=== PATIENT | female | born 1970 | race Caucasian/White ===

== ENCOUNTER 2018-04-03 00:46 | Emergency (ER) | payer BC ==
[~2018-04-03] VITALS: Ht 162.6 cm; Wt 90.7 kg
[~2018-04-03 00:46] MED LIST: BENADRYL; CALGLU500; CHOLESTEROL MED; CLIN150 PO; CLIN300 PO; CYCL10 PO; DECONGESTANT; DIAZ5 PO; DIPH50 PO; ETOD400 PO; FLUT.05NI; FOLI1 PO; HYDACE5 PO; IBUP800 PO; LORA10; LORA10ER PO; METPRE4DP PO; MULVIT; MULVIT PO; Norco 5-325 Ta1 EACH PO; ONDA4 PO; OXYACE5T PO; PROC10 PO; PRODEXEL PO; PROM25 PO; Pepcid20 MG PO; RXCLIN PO; RXCYCL10 PO; RXHYDACE PO; TRAM50 PO; Tamiflu75 MG PO; ZAFI20; Zithromax250 MG PO; [UNRECOGNIZED DRUG - REMARK]; [UNRECOGNIZED DRUG - REMARK]; [UNRECOGNIZED DRUG - REMARK]
[2018-04-03] MEDS ORDERED: Vibramycin100 MG PO (03:21)
== END 2018-04-03 03:24 | disposition left against medical advice (07) ==
LOC: ER 00:46
DX: J01.90 Acute sinusitis, unspecified (principal); E11.9 Type 2 diabetes mellitus without complications; F17.210 Nicotine dependence, cigarettes, uncomplicated; Z91.041 Radiographic dye allergy status; Z88.0 Allergy status to penicillin; Z88.2 Allergy status to sulfonamides; Z88.1 Allergy status to other antibiotic agents; Z91.013 Allergy to seafood; Z88.5 Allergy status to narcotic agent; Z88.6 Allergy status to analgesic agent
CPT/HCPCS: 99283; J1100

== ENCOUNTER → 2021-04-15 | Outpatient (CLI) | payer BC ==
[~2021-04-15] MED LIST changes: +Vibramycin100 MG PO
== END | disposition home or self-care (01) ==
LOC: LAB SHORT 14:06 → LAB 14:06
DX: N30.01 Acute cystitis with hematuria (principal)
CPT/HCPCS: 87077; 87086; 87186

== ENCOUNTER 2021-11-18 22:27 | Inpatient (IN) | payer OTHER ==
[~2021-11-18] VITALS: Ht 162.6 cm; Wt 90.2 kg
[2021-11-18 22:50] LABS: BASOPHILS ABSOLUTE AUTO 0.09 K/mm3 (0.00-0.23); BASOPHILS PERCENT AUTO 1 % (0-2); EOSINOPHILS ABSOLUTE AUTO 0.26 K/mm3 (0.00-0.68); EOSINOPHILS PERCENT AUTO 2 % (0-6); Hemoglobin 16.8 g/dL (11.5-16.0); IMMATURE GRAN ABSOLUTE AUTO 0.08 K/mm3 (0.00-0.10); IMMATURE GRAN PERCENT AUTO 1 % (0-1); LYMPHOCYTES PERCENT AUTO 12 % (21-46); MONOCYTES ABSOLUTE AUTO 0.75 K/mm3 (0.16-1.47); MONOCYTES PERCENT AUTO 6 % (4-13); Mean Corpuscular HGB 30.5 pg (26.0-34.0); Mean Corpuscular HGB Conc 33.6 g/dL (31.5-36.5); Mean Corpuscular Volume 91 fL (80-100); Mean Platelet Volume 8.9 fL (9.1-12.4); NEUTROPHILS ABSOLUTE AUTO 9.39 K/mm3 (1.96-9.15); NEUTROPHILS PERCENT AUTO 78 % (41-73); Platelet Count 306 K/mm3 (150-400); RDW Coefficient Variation 13.2 % (11.7-14.2); RDW Standard Deviation 43.1 fL (35.1-46.3); Red Blood Cell Count 5.51 M/mm3 (3.80-5.20); White Blood Cell Count 11.97 K/mm3 (4.00-11.30)
[2021-11-18 22:56] LABS: Bicarbonate Venous 28.3 mmol/L (24.0-30.0); PCO2 Venous 47.1 mmHg (38-42); pH Blood Venous 7.43 (7.34-7.37)
[2021-11-18 23:19] LABS: Alanine Aminotransfer (ALT/SGP 46 U/L (12-78); Albumin/Globulin Ratio 0.5 (0.8-1.8); Alk Phos 144 U/L (50-136); Anion Gap 9 mmol/L (6-16); Aspartate Aminotrans (AST/SGOT 27 U/L (12-37); Bilirubin, Total 0.7 mg/dL (0.1-1.0); Blood Urea Nitrogen 10 mg/dL (8-24); Bun/Creatinine Ratio 12.6 (12.0-20.0); CO2, Blood 29 mmol/L (21-32); Calcium, Blood 10.1 mg/dL (8.5-10.1); Chloride, Blood 92 mmol/L (98-108); Creatinine, Blood 0.79 mg/dL (0.40-1.00); Globulin, Blood 6.4 g/dL (2.2-4.0); Glomerular Filtration Rate >60 (60-); Glucose, Blood 382 mg/dL (70-99); Potassium, Blood 4.2 mmol/L (3.5-5.5); Sodium, Blood 130 mmol/L (136-145); Total Protein, Blood 9.4 g/dL (6.4-8.2)
[2021-11-18 23:47] LABS: Influenza A, PCR NEGATIVE (NEGATIVE); Influenza B, PCR NEGATIVE (NEGATIVE); Resp Syncytial Virus, PCR NEGATIVE (NEGATIVE); SARS-Cov-2 (COVID-19) PCR, MMC NEGATIVE (NEGATIVE)
[2021-11-19 03:43] LABS: Hematocrit 46.4 % (33.0-51.0); Hemoglobin 15.2 g/dL (11.5-16.0); Mean Corpuscular HGB Conc 32.8 g/dL (31.5-36.5); Mean Corpuscular Volume 92 fL (80-100); Mean Platelet Volume 9.3 fL (9.1-12.4); Platelet Count 282 K/mm3 (150-400); RDW Coefficient Variation 13.2 % (11.7-14.2); RDW Standard Deviation 42.9 fL (35.1-46.3); Red Blood Cell Count 5.06 M/mm3 (3.80-5.20); White Blood Cell Count 9.96 K/mm3 (4.00-11.30)
[2021-11-19 04:00] LABS: Anion Gap 5 mmol/L (6-16); Blood Urea Nitrogen 12 mg/dL (8-24); Bun/Creatinine Ratio 15.9 (12.0-20.0); CO2, Blood 30 mmol/L (21-32); Calcium, Blood 9.4 mg/dL (8.5-10.1); Chloride, Blood 96 mmol/L (98-108); Creatinine, Blood 0.75 mg/dL (0.40-1.00); Glomerular Filtration Rate >60 (60-); Glucose, Blood 414 mg/dL (70-99); Potassium, Blood 4.7 mmol/L (3.5-5.5); Sodium, Blood 131 mmol/L (136-145)
--- NOTE | 2021-11-19 06:23 | NUR ---
SHIFT SUMMARY PATIENT ADMITTED TO FLOOR AROUND 0330 AND FOUND TO BE AN ANXIOUS LADY WHO IS A&OX4 WITH SOME GEN WEAKNESS. UP WITH ONE ASSIST IN ROOM. VSS. ON 9L HFNC UPON ARRIVAL SATING MID 90'S. TACHYPENIC AND DYSPNEA ON EXERTION. SINUS TACHY IN THE LOW 100'S. IS VERY NEEDY AT TIMES BUT PLESANT. EXAGGERATES ALOT OF HER SYMPTOMS AND STORIES. TOLERATING ADA DIET. BSC. IV FLUIDS INFUSING. NO CONCERNS AT THIS TIME. WILL CONTINUE PLAN OF CARE UNTIL REPORT GIVEN TO RENEE TRAYLOR.
[2021-11-19 06:35] LABS: BASOPHILS PERCENT MAN 0 % (0-2); EOSINOPHILS PERCENT MAN 0 % (0-6); LYMPHOCYTES ABSOLUTE MAN 0.29 K/mm3 (0.84-5.20); LYMPHOCYTES PERCENT MAN 3 % (21-46); METAMYELOCYTE ABSOLUTE MAN 0.09 K/mm3 (0.00-0.00); METAMYELOCYTE PERCENT MAN 1 % (0-0); MONOCYTES ABSOLUTE MAN 0.09 K/mm3 (0.16-1.47); MONOCYTES PERCENT MAN 1 % (4-13); MYELOCYTE ABSOLUTE MAN 0.09 K/mm3 (0.00-0.00); MYELOCYTE PERCENT MAN 1 % (0-0); NEUTROPHILS ABSOLUTE MAN 9.36 K/mm3 (1.96-9.15); SEG NEUTROPHILS PERCENT MAN 94 % (41-73); TOTAL CELLS COUNTED 100
[2021-11-19 07:53] LABS: Glucose, Blood 555 mg/dL (70-99)
--- NOTE | 2021-11-19 10:52 | NUR ---
CARE ASSUMPTION: PATIENT ALERT AND ORIENTED X4. VERY ANXIOUS AND EMOTIONAL. ABLE TO MOVE ALL EXTREMITIES. SBA TO BSC. DENIES NUMBNESS/TINGLING. PERRLA. TELE SHOWING SINUS RHYTHM/SIN TACH WITH HR 90-120'S. DENIES CHEST PAIN/PRESSURE. VITAL SIGNS STABLE. NO SIGNS OF EDEMA. ON 10L HIGH FLOW NASAL CANNULA SATING LOW 90'S. DESATS WITH MOVEMENT. TITRATED UP TO 14L WHEN UP TO BSC. DENIES ABDOMINAL PAIN/NAUSEA. URINE CLEAR/YELLOW. BLOOD SUGAR CHECKS ACHS, THIS AM BLOOD SUGAR 555. PATIENT STATES SHE IS HYPOGLYCEMIC AND DOES NOT UNDERSTAND WHY SHE IS HAVING HIGH BLOOD SUGARS. DR. BURNETTE IN ROOM AT TIME. EDUCATION PROVIDED TO PATIENT. PATIENT ONLY WANTING TO TAKE "HALF DOSES OF INSULIN". 8 UNITS OF HUMALOG AND 10 UNITS OF GLARGINE GIVEN THIS AM PER DR. BURNETTE. SEE EMAR FOR ADMINISTATION. NS RUNNING AT 100 ML/HR X1 BAG. OCCASIONAL DRY SOUNDING COUGH. SPUTUM SAMPLE COLLECTED THIS AM. TOLERATING PO DIET. CALL LIGHT IN REACH. WILL CONTINUE TO MONITOR.
--- NOTE | 2021-11-19 12:09 | NUR ---
UPDATE: DR. Avilez CALLED TO UPDATE ON AFTERNOON BLOOD SUGAR. VITAL SIGNS STABLE. PATIENT EATING LUNCH AT THIS TIME. WILL CONTINUE TO MONITOR.
--- NOTE | 2021-11-19 17:33 | NUR ---
SHIFT SUMMARY: PATIENT REMAINS ALERT AND ORIENTED X4. NO CHANGES IN NEURO. ANXIOUS AND EMOTIONAL. TELE REMAINS UNCHANGED AT SINUS RHYTHM-SINUS TACH 90-110'S. DENIES CHEST PAIN. HIGH FLOW NASAL CANNNULA AT 10-13L. NEEDING MORE WHEN WALKING, TALKING AND WHEN ANXIOUS. ENCOURAGED PATIENT TO PRONE AND SIDE LAY, PATIENT REFUSING TO LAY PRONE. IV FLUIDS FINISHED X1 BAG THIS SHIFT. LUNGS SOUNDING DIMINISHED. BLOOD SUGARS REMAIN HIGH, PATIENT NOT WANTING TO TAKE FULL DOSES OF SLIDING SCALE INSULIN. PATIENT ALSO WANTING TO DISCUSS CODE STATUS AND CHANGED FROM DNR TO FULL CODE. DR. Avilez CALLED AND ORDER CHANGED. DNR BAND REMOVED. PATIENT EATING DINNER AT THIS TIME. USING BSC WITH ONE PERSON ASSIST. DENIES NEEDS. WILL CONTINUE TO MONITOR AND REPORT OFF.
--- NOTE | 2021-11-19 23:38 | NUR ---
Assumed care of pt at 1900. A/Ox4. No reports of pain/CP/pressure, besides a patent IV in the L AC that makes her arm "cramp". Maintaining low-mid 90's on 11L HFNC, with O2 needs up to 14L w/activity. LS clear on top and fine crackles. SR on tele with Sinus tach w/activity. VSS. No edema noted. Patient is often very anxious. Will update as changes occur.
[2021-11-20 06:04] LABS: BASOPHILS ABSOLUTE AUTO 0.06 K/mm3 (0.00-0.23); BASOPHILS PERCENT AUTO 1 % (0-2); EOSINOPHILS ABSOLUTE AUTO 0.12 K/mm3 (0.00-0.68); EOSINOPHILS PERCENT AUTO 1 % (0-6); Hemoglobin 15.1 g/dL (11.5-16.0); IMMATURE GRAN ABSOLUTE AUTO 0.07 K/mm3 (0.00-0.10); IMMATURE GRAN PERCENT AUTO 1 % (0-1); LYMPHOCYTES ABSOLUTE AUTO 3.13 K/mm3 (0.84-5.20); LYMPHOCYTES PERCENT AUTO 31 % (21-46); MONOCYTES ABSOLUTE AUTO 0.67 K/mm3 (0.16-1.47); MONOCYTES PERCENT AUTO 7 % (4-13); Mean Corpuscular HGB 30.6 pg (26.0-34.0); Mean Corpuscular HGB Conc 32.8 g/dL (31.5-36.5); Mean Corpuscular Volume 93 fL (80-100); Mean Platelet Volume 9.6 fL (9.1-12.4); NEUTROPHILS ABSOLUTE AUTO 6.21 K/mm3 (1.96-9.15); NEUTROPHILS PERCENT AUTO 61 % (41-73); Platelet Count 356 K/mm3 (150-400); RDW Coefficient Variation 13.3 % (11.7-14.2); RDW Standard Deviation 44.7 fL (35.1-46.3); Red Blood Cell Count 4.93 M/mm3 (3.80-5.20); White Blood Cell Count 10.26 K/mm3 (4.00-11.30)
[2021-11-20 06:42] LABS: Anion Gap 8 mmol/L (6-16); Blood Urea Nitrogen 13 mg/dL (8-24); Bun/Creatinine Ratio 13.3 (12.0-20.0); CO2, Blood 28 mmol/L (21-32); Calcium, Blood 9.6 mg/dL (8.5-10.1); Chloride, Blood 99 mmol/L (98-108); Creatinine, Blood 0.98 mg/dL (0.40-1.00); Glomerular Filtration Rate >60 (60-); Glucose, Blood 224 mg/dL (70-99); Potassium, Blood 3.5 mmol/L (3.5-5.5); Sodium, Blood 135 mmol/L (136-145)
--- NOTE | 2021-11-20 14:17 | NUR ---
REPORT GIVEN TO DRISS TRAYLOR ON MEDICAL.
--- NOTE | 2021-11-20 14:46 | NUR ---
ASSUMED CARE OF PATIENT UPON HER ARRIVAL FROM PCU AT 1410. O2 @ 9 L/MIN HIGH FLOW. TRANSFERRED FROM W/C TO BED WITH MIN ASSIST. A&O X 3, ABLE TO MAKE NEEDS KNOWN. HAS ALL BELONGINGS, CALL LIGHT IN REACH.
--- NOTE | 2021-11-20 17:25 | NUR ---
HYPERGLYCEMIA: PT CBG WAS 388 BEFORE DINNER. HUMALOG [address] MURDOCK, NO ADDITIONAL INSULIN ORDERED AT THIS TIME.
--- NOTE | 2021-11-20 18:28 | NUR ---
SHIFT SUMMARY: NO ACUTE EVENTS. O2 @ 8 L/MIN HIGH FLOW NC WITH HUMIDIFICATION. CONTINUOUS OXIMETRY SHOWS SATS 92-94%, BUT DESATS TO 85% WITH ACTIVITY, TAKES SEVERAL MINUTES TO RECOVER, BECOMES ANXIOUS AND TACHYPNEIC. NO EVENTS ON TELEMETRY. GETTING UP TO BSC WITH 1 PERSON ASSIST. DENIES PAIN, N/V. CBG > 350; PROVIDER NOTIFIED. LACKS KNOWLEDGE OF HER ILLNESS AND RELIES ON HER "RESEARCH:, FOR EXAMPLE, WAS GIVEN OIL AND VINEGAR DRESSING FOR HER SALAD, BUT REQUESTED RANCH DRESSING BECAUSE "ACCORDING TO MY RESEARCH, VINEGAR HAS A TON OF SUGAR IN IT." WAS EDUCATED ABOUT THE SUGAR CONTENT OF THE RANCH DRESSING AND HER REQUEST FOR RANCH DRESSING WAS DENIED. DENIES THAT SHE HAS PE, ATTRIBUTES THIS HOSPITALIZATION TO HYPOGLYCEMIA.
[2021-11-21 06:12] LABS: Anion Gap 8 mmol/L (6-16); Blood Urea Nitrogen 14 mg/dL (8-24); Bun/Creatinine Ratio 18.5 (12.0-20.0); CO2, Blood 27 mmol/L (21-32); Calcium, Blood 9.7 mg/dL (8.5-10.1); Chloride, Blood 101 mmol/L (98-108); Creatinine, Blood 0.76 mg/dL (0.40-1.00); Glomerular Filtration Rate >60 (60-); Glucose, Blood 141 mg/dL (70-99); Potassium, Blood 3.6 mmol/L (3.5-5.5); Sodium, Blood 136 mmol/L (136-145)
--- NOTE | 2021-11-21 06:30 | NUR ---
SHIFT SUMMARY PATIENT ALERT AND ORIENTED. HAD NO COMPLAINTS OF PAIN. GETS VERY DYSPNIC AND DESATS UPON EXERTION. NO ACUTE ISSUES NOTED OVERNIGHT. CALL LIGHT WITHIN REACH. REPORT GIVEN TO ONCOMING RN.
--- NOTE | 2021-11-21 15:55 | NUR ---
SHIFT SUMMARY PT IS A&O, PLEASANT AND CO-OP. ON 8L HIGH FLOW O2 AT START OF SHIFT WITH BIOX AT 97%. O2 DECREASED TO 6L HIGH FLOW WITH BIOX AT 96%. THIS AFTERNOON O2 DECREASED AGAIN TO 5L WITH BIOX > 93%. SR @ 88 ON TELE. UP TO BSC WITH SBA TO VOID. BED BATH GIVEN AFTER BREAKFAST. PT SITTING UP IN BED WATCHING TV AND TALKING ON PHONE. DENIES NEEDS AT THIS TIME. CALL LT IN REACH.
--- NOTE | 2021-11-21 16:14 | NUR ---
SHIFT SUMMARY PT IS A&O, PLEASANT AND CO-OP. TEMP AT START OF SHIFT 101.7. BLANKETS REMOVED AND TYLENOL GIVEN PER EMAR. TEMP RECHK'D; 98.0, SEE CHART. CEBALLOS TO GRAVITY; PATENT. REQUESTED BED LOW FOR BM; UNSUCCESSFUL TO PRESENT. ABLE TO WORK W/THERAPY TODAY AND GET UP TO EOB FOR EXERCISES. MAKENZIE AREA AND COCCYX MUCH IMPROVED FROM REDNESS ON ADMIT. RLE WITH SCABS AND NEUROPATHY; LLE WITH LBKA. PT VERY TALKATIVE AND GRATEFUL FOR CARE. DENIES FURTHER NEEDS AT THIS TIME. CALL LT IN REACH.
[2021-11-22 05:23] LABS: BASOPHILS ABSOLUTE AUTO 0.05 K/mm3 (0.00-0.23); BASOPHILS PERCENT AUTO 1 % (0-2); EOSINOPHILS PERCENT AUTO 1 % (0-6); Hematocrit 43.9 % (33.0-51.0); Hemoglobin 14.7 g/dL (11.5-16.0); IMMATURE GRAN ABSOLUTE AUTO 0.03 K/mm3 (0.00-0.10); IMMATURE GRAN PERCENT AUTO 0 % (0-1); LYMPHOCYTES ABSOLUTE AUTO 3.16 K/mm3 (0.84-5.20); LYMPHOCYTES PERCENT AUTO 37 % (21-46); MONOCYTES ABSOLUTE AUTO 0.67 K/mm3 (0.16-1.47); MONOCYTES PERCENT AUTO 8 % (4-13); Mean Corpuscular HGB 30.8 pg (26.0-34.0); Mean Corpuscular HGB Conc 33.5 g/dL (31.5-36.5); Mean Corpuscular Volume 92 fL (80-100); Mean Platelet Volume 9.3 fL (9.1-12.4); NEUTROPHILS ABSOLUTE AUTO 4.64 K/mm3 (1.96-9.15); NEUTROPHILS PERCENT AUTO 54 % (41-73); Platelet Count 366 K/mm3 (150-400); RDW Coefficient Variation 13.1 % (11.7-14.2); RDW Standard Deviation 43.2 fL (35.1-46.3); Red Blood Cell Count 4.78 M/mm3 (3.80-5.20); White Blood Cell Count 8.65 K/mm3 (4.00-11.30)
--- NOTE | 2021-11-22 05:49 | NUR ---
Patient on 5 liters of nasal cannula upon arrival. Client short of breath when ambulating to the bedside commode. 02 turned upt o 7 Liters of oxygen becuase of increased heart rate and 02 sats of 73's when ambulating. Patient called for assistance around 10:30pm stated that the nasal cannula was making her nose bleed. Pt is on lovenox MD consulted. Pt switched from a nasal cannula to a ventur mask which has improved the pt's oxygen saturations for the shift. RN ambulated pt x3 to bedside commode. Pt tolerated transfer beter with the venturi mask vs the nasal cannula. Pt sitting upright in bed no signs of distress, will report to oncoming nurse upon arrival.
[2021-11-22 05:56] LABS: Anion Gap 7 mmol/L (6-16); Blood Urea Nitrogen 14 mg/dL (8-24); CO2, Blood 28 mmol/L (21-32); Calcium, Blood 9.6 mg/dL (8.5-10.1); Chloride, Blood 98 mmol/L (98-108); Creatinine, Blood 0.67 mg/dL (0.40-1.00); Glomerular Filtration Rate >60 (60-); Glucose, Blood 208 mg/dL (70-99); Potassium, Blood 3.7 mmol/L (3.5-5.5); Sodium, Blood 133 mmol/L (136-145)
--- NOTE | 2021-11-22 17:10 | NUR ---
DAY SHIFT SUMMARY 51 YR OLD FEMALE ADMITTED WITH SEVERE SEPSIS. PT HAD COVID BACK IN OCTOBER. CURRENTLY ON 9L O2 VENTURI MASK. PT HAS A NONPRODUCTIVE/DRY COUGH. PLAN TO WEAN DOWN O2. CALL LIGHT WITHIN REACH, PT IS ABLE TO CALL APPROPRIATELY. NO ACUTE CHANGES THIS SHIFT.
--- NOTE | 2021-11-22 21:28 | NUR ---
PLACED BACK ON VENTI MASK FOR RESPIRATORY COMFORT PER RT. CALL LIGHT IN REACH
--- NOTE | 2021-11-23 04:04 | NUR ---
EAP SPECIALIST SUMMARY AWAKE AT INTERVALS DUE TO COUGHING AND "MACHINE GOING OFF.." (CONT PULSE OX, DUE TO O2 SATS DOPPING). RECEIVED TESSALELSA HUSAIN MED EFFECTIVE. SATS IN THE 90'S, PULSE LESS RAPID. COUGHING TRENDED DOWNWARD. GETTING READY TO GET SOME REST AT THIS WRITING. CALL LIGHT IN REACH. WILL CONTINUE TO MONITOR. VENTI MASK IN USE.
--- NOTE | 2021-11-23 18:11 | NUR ---
DAY SHIFT SUMMARY 51 YR OLD FEMALE ADMITTED FOR SEVERE SEPSIS. CONTINUES TO BE SOB, CURRENTLY ON 9L O2 NC. PT PREFERS TO WEAR THE VENTURI MASK WHEN SLEEPING SHE SLEEPS WITH HER MOUTH OPEN, NC WHEN AWAKE. 02 WAS BUMPED UP TO 11 WHEN PT AMBULATED TO THE [facility] [place] AND DESATED WHILE CLIMBING BACK IN BED. WAS ABLE TO WEAN BACK DOWN TO 9L SHORTLY AFTER. PLAN TO CONTINUE TO TRY TO WEAN O2 DOWN. CALL LIGHT WITHIN REACH OF PT, AND ABLE TO CALL APPROPRIATELY.
--- NOTE | 2021-11-24 00:22 | NUR ---
WAS UP TO THE BEDSIDE COMMODE TO VOID, BACK IN BED AND COUGHING. VOICED SOB, COUGHING UP WHAT PT STATED LOOKED LIKE "COTTAGE CHEESE" (NURSE DID NOT SEE IT). TESSALON RODRIGUE ADMINISTERED. ENCOURAGED TO BREATHE SLOW THROUGH NOSE. O2 SATS BACK IN THE 90'S. CALL LIGHT IN REACH.
--- NOTE | 2021-11-24 04:07 | NUR ---
SHREDDER TENDER PEAT SUMMARY WAS HAVING COUGHING SPELLS AT HS, RECEIVED TESSALON RODRIGUE AND COUGH RELIEVED. REMAINS ON O2 PER VENTI MASK AT 9L WITH CONT O2 SATS IN THE 90'S, SEE,S TO BE A MOUTH BREATHER AT NIGHT. HAS BEEN RESTING QUIETLY SINCE WITH OCCASIONAL INTERRUPTION. CALL LIGHT IN REACH
[2021-11-24 04:50] LABS: BASOPHILS ABSOLUTE AUTO 0.07 K/mm3 (0.00-0.23); BASOPHILS PERCENT AUTO 1 % (0-2); EOSINOPHILS ABSOLUTE AUTO 0.13 K/mm3 (0.00-0.68); EOSINOPHILS PERCENT AUTO 1 % (0-6); Hematocrit 43.4 % (33.0-51.0); Hemoglobin 14.4 g/dL (11.5-16.0); IMMATURE GRAN ABSOLUTE AUTO 0.04 K/mm3 (0.00-0.10); IMMATURE GRAN PERCENT AUTO 0 % (0-1); LYMPHOCYTES ABSOLUTE AUTO 3.81 K/mm3 (0.84-5.20); LYMPHOCYTES PERCENT AUTO 39 % (21-46); MONOCYTES ABSOLUTE AUTO 0.66 K/mm3 (0.16-1.47); MONOCYTES PERCENT AUTO 7 % (4-13); Mean Corpuscular HGB 30.6 pg (26.0-34.0); Mean Corpuscular HGB Conc 33.2 g/dL (31.5-36.5); Mean Corpuscular Volume 92 fL (80-100); Mean Platelet Volume 9.1 fL (9.1-12.4); NEUTROPHILS ABSOLUTE AUTO 4.96 K/mm3 (1.96-9.15); NEUTROPHILS PERCENT AUTO 51 % (41-73); Platelet Count 354 K/mm3 (150-400); RDW Standard Deviation 43.4 fL (35.1-46.3); Red Blood Cell Count 4.71 M/mm3 (3.80-5.20); White Blood Cell Count 9.67 K/mm3 (4.00-11.30)
[2021-11-24 05:05] LABS: Anion Gap 9 mmol/L (6-16); Blood Urea Nitrogen 15 mg/dL (8-24); Bun/Creatinine Ratio 23.9 (12.0-20.0); CO2, Blood 26 mmol/L (21-32); Calcium, Blood 9.4 mg/dL (8.5-10.1); Chloride, Blood 98 mmol/L (98-108); Creatinine, Blood 0.63 mg/dL (0.40-1.00); Glomerular Filtration Rate >60 (60-); Glucose, Blood 286 mg/dL (70-99); Potassium, Blood 3.9 mmol/L (3.5-5.5); Sodium, Blood 133 mmol/L (136-145)
--- NOTE | 2021-11-24 16:05 | NUR ---
SHIFT SUMMARY NO ACUTE CHANGES TO PRESENT THIS SHIFT. PT ON 9L O2 AT START OF SHIFT. O2 DECREASED TO 4L WITH BIOX MAINTAINING 97%. PT DID DESAT ONLY BRIEFLY AFTER GETTING UP TO BSC AND COUGHING, BUT RETURNED TO UPPER 90'S. RT IN TO SEE PT AND ASSIST PT IN USING FLUTTER VALVE AND INS. IV STEROIDS CHANGED TO PO PER PT REQUEST, WANTING IV SITE OUT. CALL LI IN REACH, ABLE TO MAKE NEEDS KNOWN.
--- NOTE | 2021-11-25 04:42 | NUR ---
SHIFT SUMMARY A/O X4. STAND BY ASSIST TO BEDSIDE COMMODE. VOIDING AND PASSING STOOL. NO PAIN REPORTED THIS SHIFT. VITAL SIGNS STABLE, 4L O2 VIA NC 97%. TOLERATING PO INTAKE. DID NOT SLEEP MUCH TONIGHT. WILL CONTINUE TO MONITOR AND REPORT TO ONCOMING RN.
--- NOTE | 2021-11-25 18:19 | NUR ---
SHIFT SUMMARY NO ACUTE CHANGES TO PRESENT THIS SHIFT. PT ON 4L O2 AT START OF SHIFT, DECREASED TO 2L WITH BIOX @ 96%. PT UP TO SHOWER THIS AM, LINENS CHANGED. PT UP TO BSC INDEPENDENTLY. DR SMITH IN TO SEE PT AGAIN TODAY. PT HAS BEEN VERY DIFFICULT TO EDUCATE ON PLAN OF CARE TO D/C HOME. PT UNWILLING TO USE FLUTTER VALVE OR INS MORE THAN ONCE AT A TIME EVERY SEVERAL HOURS. PT HAS ALOT OF HEALTH AND MEDICATION MISINFORMATION MAKING IT IMPOSSIBLE TO EDUCATE AND HELP HER IMPROVE. PT IS VERY DRAMATIC WHEN SHE DESCRIBES HER SX'S. CALL LT IN REACH. ABLE TO MAKE NEEDS KNOWN.
[2021-11-26 06:55] LABS: Anion Gap 7 mmol/L (6-16); Blood Urea Nitrogen 17 mg/dL (8-24); Bun/Creatinine Ratio 26.1 (12.0-20.0); CO2, Blood 30 mmol/L (21-32); Calcium, Blood 9.7 mg/dL (8.5-10.1); Chloride, Blood 98 mmol/L (98-108); Creatinine, Blood 0.65 mg/dL (0.40-1.00); Glomerular Filtration Rate >60 (60-); Glucose, Blood 135 mg/dL (70-99); Potassium, Blood 3.6 mmol/L (3.5-5.5); Sodium, Blood 135 mmol/L (136-145)
--- NOTE | 2021-11-26 08:15 | NUR ---
RESPIRATORY STATUS: LATE ENTRY AFTER RECEVING A MORNING RT TREATMENT, PATIENT REPORTED THAT SHE FELT LIKE HER "THROAT WAS CLOSING". RT WAS IN THE ROOM. PATIENT ANXIOUS. INCREASED RESPIRATIONS UP TO 26. PATIENT HAD SOME DESATURATION LOW 86%. O2 INCREASED. MAGNETIC TESTER IN THE ROOM WHILE PRIMARY RN CALLED DR. SMITH. WHEN RN RETURNED TO THE ROOM, PATIENT WAS ABLE TO CLARIFY THAT IT WAS SPUTUM THAT WAS IRRITATING HER THROAT. PATIENT ABLE TO SPEAK CLEARLY AND EAT A CRACKER. NO CYANOSIS OR GASPING FOR AIR NOTED. SPO2 STABILIZED AT 88-91%. NEW ORDERS RECEIVED AND ENTERED.
--- NOTE | 2021-11-26 11:07 | NUR ---
CASE CONFERENCE: Spoke to pt's bedside RN Smitha. She reports pt currently titrated to RA at rest, requiring prn 02 with activity. However, this is a major improvement in pt's overall condition in relation to her Covid pneumonia. No further needs identified at this time. Will remain available.
--- NOTE | 2021-11-26 19:49 | NUR ---
END OF SHIFT SUMMARY: PATIENT INITIALLY REPORTED ADVERSE REACTION TO ATROVENT TREATMENT THIS MORNING. PATIENT ABLE TO CLARIFY THAT IT HAD SIMPLY IRRITATED HER THROAT AND CAUSED INCREASED SPUTUM. BY THE AFTERNOON, PATIENT SPO2 WAS AT 93-94% ON ROOM AIR. PATIENT REPORTED THAT IT WAS THE BREATHING TREATMENT THIS MORNING THAT HELPED HER ACHIEVE THESE NUMBERS. PATIENT RECEIVED PRN FOR ANXIETY MID-DAY TODAY. THIS APPEARED TO HELP THE PATIENT RELAX AND ACHIEVE DEEPER BREATHS. PATIENT DENIED SHORTNESS OF BREATH OR DIFFICULTY BREATHING THROUGHOUT THE DAY FOLLOWING THIS MORNING'S EPISODE. PATIENT PERFORMED HOME O2 EVALUATION WITH RT THIS MORNING. RESULTS RELAYED TO DR. SMITH. DR. SMITH DISCUSSED THAT THE PLAN IS FOR THE PATIENT TO POTENTIALLY DISCHARGE TOMORROW WITH LANTUS. REQUESTED THAT THE PHARMACIST AND INVENTORY TECHNICIAN COME IN TO SPEAK WITH THE PATIENT ABOUT LANTUS AND ADA DIET. BOTH WERE ABLE TO ROUND ON THE PATIENT. INITIATED TEACHING ON LANTUS WITH THE PATIENT FROM RN PERSPECTIVE. PATIENT RECEPTIVE.
--- NOTE | 2021-11-27 03:36 | NUR ---
PT IS A/OX4. SHE HAS BEEN INDEPENDENT IN ROOM TO [facility] [place]. SHE HAS BEEN TITRATED DOWN TO RA, BUT STILL DESATS WITH AMBULATION--SHE DOES RECOVER QUICKLY. PT IS A POSSIBLE DISCHARGE TODAY. SHE HAS AGREED TO START TAKING ELIQUIS AFTER DISCHARGE. SHE WILL BE ADDING LANTUS TO HER MEDICATIONS ON DC AND SHE NEEDS ULTRA MINI GLUCOSE STRIPS FOR HER GLUCOMETER.
[2021-11-27] MEDS ORDERED: ELIQUIS5 M2 PO (13:14)
[2021-11-27] MEDS ORDERED: HYDHCL25 PO (13:15)
[2021-11-27] MEDS ORDERED: BASAGLAR K100 UNIT/1 SC (13:16)
[2021-11-27] MEDS ORDERED: ATROVENT HFA12.9 GM PO (13:17)
[2021-11-27] MEDS ORDERED: IPRAT-ALBUT 0.5-3 ML INH (13:18)
--- NOTE | 2021-11-27 16:47 | NUR ---
DISCHARGE SUMMARY: PRIOR TO DISCHARGE PT WAS EDUCATED ON DISCHARGE INSTRUCTIONS, NEW MEDICATIONS, AND HOME OXYGEN. ASSISTED WITH PACKING UP PT BELONGINGS. PT WAS ASSISTED TO WHEELCHAIR AND DISCHARGED IN POV WITH THE HELP OF THIS STUDENT RN. PT WAS TOLD TO CALL UNIT IF ANY QUESTIONS OR CONCERNS CAME UP.
== END 2021-11-27 16:39 | disposition home or self-care (01) | DRG 871 ==
LOC: ER 22:27 → PCU 11-19 02:33 → MEDS 11-20 14:10
PROVIDERS: Emergency Medicine; Family Medicine; Hospitalist; Student in an Organized Health Care Education/Training Program; ADMIT Family Medicine
PROC: 8E0ZXY6 Isolation (ICD-10-PCS; principal; 2021-11-19)
PROC: 3E0333Z Introduction of Anti-inflammatory into Peripheral Vein, Percutaneous Approach (ICD-10-PCS; 2021-11-19)
PROC: XW0DXM6 Introduction of Baricitinib into Mouth and Pharynx, External Approach, New Technology Group 6 (ICD-10-PCS; 2021-11-19)
PROC: 3E03329 Introduction of Other Anti-infective into Peripheral Vein, Percutaneous Approach (ICD-10-PCS; 2021-11-19)
DX: A41.9 Sepsis, unspecified organism (principal); J96.01 Acute respiratory failure with hypoxia; J96.02 Acute respiratory failure with hypercapnia; J12.82 Pneumonia due to coronavirus disease 2019; I26.99 Other pulmonary embolism without acute cor pulmonale; E87.1 Hypo-osmolality and hyponatremia; Z66 Do not resuscitate; R65.20 Severe sepsis without septic shock; F17.210 Nicotine dependence, cigarettes, uncomplicated; M79.7 Fibromyalgia; Z20.822 Contact with and (suspected) exposure to COVID-19; E11.65 Type 2 diabetes mellitus with hyperglycemia; U09.9 Post COVID-19 condition, unspecified; K02.9 Dental caries, unspecified; F41.9 Anxiety disorder, unspecified; E66.9 Obesity, unspecified; Z53.29 Procedure and treatment not carried out because of patient's decision for other reasons; Z68.34 Body mass index [BMI] 34.0-34.9, adult; Q85.01 Neurofibromatosis, type 1; Z88.0 Allergy status to penicillin; Z88.1 Allergy status to other antibiotic agents; Z88.2 Allergy status to sulfonamides; Z88.5 Allergy status to narcotic agent; Z91.041 Radiographic dye allergy status; Z90.49 Acquired absence of other specified parts of digestive tract; Z90.89 Acquired absence of other organs
CPT/HCPCS: 0241U; 36415; 71045; 71250; 78580; 80048; 80053; 82803; 82947; 83036; 83605; 83880; 84145; 84484; 85025; 85379; 86140; 86141; 87040; 87070; 87205; 93005; 93010; 94640; 94668; 94760; 94761; 94762; 96365; 96366; 96375; 99285-25; A9270; A9540; C9399; J0456; J0696; J1100; J1650; J1815; J7030; J7040; J7050